=== PATIENT | male | born 1955 | race Caucasian/White ===

== ENCOUNTER → 2023-10-20 07:11 | Outpatient (REF) | payer MEDICARE, OTHER, SELFPAY ==
[2023-10-20 08:38] LABS: Urine Albumin Negative (Neg - Trace); Urine Bilirubin Negative (Negative); Urine Character Clear (Clear); Urine Color Yellow; Urine Glucose Negative (Negative); Urine Ketone Negative (Negative); Urine Leukocyte Negative (Negative); Urine Nitrite Negative (Negative); Urine Occult Blood Negative (Negative); Urine Urobilinogen Negative (Neg - 1+)
[2023-10-20 09:09] LABS: AST (SGOT) 31 U/L (17-59); Albumin 4.7 g/dl (3.5-5.0); Blood Urea Nitrogen 21 mg/dl (9-20); Carbon Dioxide 26 mmol/L (22-30); Chloride 101 mmol/L (98-107); Glucose 126 mg/dl (70-99); Total Bilirubin 1.2 mg/dl (0.2-1.3); Total Cholesterol 161 mg/dl (50-199); Total Protein 7.5 g/dl (6.3-8.2); eGFR > 60.00
[2023-10-20 09:17] LABS: ALT (SGPT) 22 U/L (0-50); Alkaline Phosphatase 45 U/L (38-126); HDL Cholesterol 82 mg/dl; LDL Cholesterol, Calculated 67 mg/dl; Potassium 4.4 mmol/L (3.5-5.1); Sodium 135 mmol/L (135-145); Triglyceride 64 mg/dl (10-149); Very Low Density Lipoprotein 12 mg/dl (0-30)
[2023-10-20 09:32] LABS: PSA, Total - Screen 2.04 ng/ml (0.0-4.0)
[2023-10-20 10:48] LABS: Glycohemoglobin (HgbA1c) 6.8 % (4.0-5.6)
== END ==
LOC: REG 07:11
PROVIDERS: ATTENDING PHYSICIAN Internal Medicine
DX: E11.9 Type 2 diabetes mellitus without complications (principal); E78.5 Hyperlipidemia, unspecified; I10 Essential (primary) hypertension; J98.01 Acute bronchospasm; M19.042 Primary osteoarthritis, left hand; Z12.5 Encounter for screening for malignant neoplasm of prostate
CPT/HCPCS: 36415; 80053; 80061; 81003; 83036; G0103

== ENCOUNTER → 2024-09-13 07:45 | Outpatient (REF) | payer MEDICARE, OTHER, SELFPAY ==
[2024-09-13 09:42] LABS: ALT (SGPT) 23 U/L (0-50); AST (SGOT) 28 U/L (17-59); Albumin 4.8 g/dl (3.5-5.0); Alkaline Phosphatase 55 U/L (38-126); Blood Urea Nitrogen 26 mg/dl (9-20); Calcium 10.2 mg/dl (8.4-10.2); Carbon Dioxide 31 mmol/L (22-30); Chloride 101 mmol/L (98-107); Glucose 181 mg/dl (70-99); Potassium 4.5 mmol/L (3.5-5.1); Sodium 140 mmol/L (135-145); Total Bilirubin 1.4 mg/dl (0.2-1.3); Total Protein 7.6 g/dl (6.3-8.2); eGFR > 60.00
== END ==
LOC: REG 07:45
PROVIDERS: ATTENDING PHYSICIAN Internal Medicine
DX: E11.9 Type 2 diabetes mellitus without complications (principal); E78.5 Hyperlipidemia, unspecified; I10 Essential (primary) hypertension; J98.01 Acute bronchospasm; M19.042 Primary osteoarthritis, left hand
CPT/HCPCS: 36415; 80053; 83036

== ENCOUNTER → 2024-12-20 07:17 | Outpatient (REF) | payer MEDICARE, OTHER, SELFPAY ==
[2024-12-20 11:04] LABS: Glycohemoglobin (HgbA1c) 7.6 % (4.0-5.6)
== END ==
LOC: REG 07:17
PROVIDERS: ATTENDING PHYSICIAN Hospitalist
DX: E11.9 Type 2 diabetes mellitus without complications (principal)
CPT/HCPCS: 36415; 83036